=== PATIENT | male | born 1935 | race Caucasian/White ===

== ENCOUNTER → 2018-07-27 | Outpatient (CLI) | payer MEDICARE | END | disposition home or self-care (01) | LOC: PCVCCLINIC 10:30 | PROVIDERS: ATTEND Internal Medicine | DX: R93.1 Abnormal findings on diagnostic imaging of heart and coronary circulation (principal); E78.5 Hyperlipidemia, unspecified; G47.33 Obstructive sleep apnea (adult) (pediatric); F41.9 Anxiety disorder, unspecified; Z87.891 Personal history of nicotine dependence; Z88.0 Allergy status to penicillin | CPT/HCPCS: 93005; G0463 ==

== ENCOUNTER → 2018-08-07 | Outpatient (CLI) | payer MEDICARE ==
--- NOTE | 2018-08-07 12:28 | PCVCIMAG ---
APPROVED REPORT Study performed: 08/07/2018 11:20:30 Exam: Stress Echocardiogram Indication: CAD Patient Location: Echo lab Stress Nurse: Keke Hernandez RN Room #: 2 Status: routine Ht: 6 ft 0 in HR: 87 bpm BP: 136/96 mmHg Rhythm: NSR Medical History Medical History: CAD non obstructive, cor Ca+ >400, Tobacco history (Former) Cardiac Risk Factors: Hyperlipidemia,ZITA,, Tobacco History (Former) Previous Cardiac Procedures: none Pretest Chest Pain Characteristics: No chest pain Exercise History: Physically active Procedure The patient underwent an Exercise Stress Test using the Pedro Luis Protocol. Blood pressure, heart rate, and EKG were monitored. An Echocardiogram was performed by accelerator technician in four stages in quad fashion. At peak stress, four selected images were obtained and placed side by side with resting images for comparison. Stress Test Details Stress Test: Exercise stress testing was performed using a Pedro Luis protocol. HR Resting HR: 85 bpmMax Heart Rate (APMHR): 138 bpm Max HR Achieved: 160 bpmTarget HR (85% APMHR): 117 bpm % of APMHR: 115 Recovery HR: 100 bpm HR response to stress: Normal HR response to stress BP Resting BP: 136/96 mmHg Max BP: 162/80 mmHg Recovery BP: 138/60 mmHg BP response to stress: Normal blood pressure response to stress. ECG Resting ECG: Sinus Rhythm Stress ECG: Sinus Rhythm ST Change: Non-ischemic Maximum ST Deviation: 0 mm Arrhythmia: APC's Recovery ECG: Sinus Rhythm Recovery ST Change: Non-ischemic Recovery ST Deviation: 0 mm Recovery Arrhythmia: APC Clinical Reason for Termination: Maximal effort Stress Symptoms: none Exercise duration: 6 min 31 sec Highest Stage Achieved: Stage 3: 3.4 mph at 14% grade. Exercise capacity: 8.6 METs Overall Exercise Capacity for Age: Good Angina Score: None No complications. Stress ECG Conclusion The patient exercised according to the PEDRO LUIS protocol for 6:31 mins; achieving a work level of 8.60 METS. The resting heart rate of 85 bpm omar to a maximum heart rate of 151bpm. This value represent 115% of the maximal, age-predicted heart rate. The resting blood pressure of 136/96 mmHg, omar to a maximum blood pressure of 162/80 mmHg. The exercise test was stopped due to fatigue. Priest Treadmill Score is 6.0 which is Low risk. Pre-Stress Echo The resting Echocardiogram showed normal left ventricular contractility with an estimated Ejection Fraction of about 55-60%. Normal wall motion in all segments on baseline images. Post-Stress Echo The stress Echocardiogram showed normal left ventricular contractility with an estimated Ejection Fraction of about 65-70%. Normal augmentation of wall motion in all segments on post stress images. Clinical No clinical or ECG evidence for ischemia. Conclusion Clinical Response: Non-ischemic Exercise Capacity: Average Stress ECG Response: Non-ischemic Stress Echo Images: Non-ischemic No clinical, EKG or echocardiographic evidence for ischemia. No echocardiographic evidence for exercise induced ischemia. Normal stress echocardiogram with maximal exercise stress. <Conclusion> No clinical, EKG or echocardiographic evidence for ischemia. No echocardiographic evidence for exercise induced ischemia. Normal stress echocardiogram with maximal exercise stress.
== END | disposition home or self-care (01) ==
LOC: PCVCIMAG 10:58
PROVIDERS: ATTEND Internal Medicine
DX: I25.10 Atherosclerotic heart disease of native coronary artery without angina pectoris (principal); Z88.0 Allergy status to penicillin
CPT/HCPCS: 93325; 93351